=== PATIENT | female | born 1995 | race Caucasian/White ===

== ENCOUNTER 2020-10-26 17:03 | Emergency (ER) | payer BC ==
[~2020-10-26] VITALS: Ht 160 cm; Wt 84.4 kg
[2020-10-26 17:15] VITALS: BP 137/89
--- NOTE | 2020-10-26 17:15 | NUR ---
PT TAKEN TO BED 11.
[2020-10-26] MEDS ORDERED: LIDOCAINE 2% 1000 MG/50 ML VIAL INJ ONE (17:25)
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
--- NOTE | 2020-10-26 17:52 | NUR ---
TANVIR Aaron at bedside for suture procedure.
[2020-10-26 18:09] VITALS: BP 137/89
--- NOTE | 2020-10-26 18:10 | NUR ---
Patient discharged with v/s stable. Written and verbal after care instructions given and explained. Patient verbalized understanding. Ambulatory with steady gait. All questions addressed prior to discharge. Advised to follow up with PMD.
== END 2020-10-26 18:10 | disposition home or self-care (01) ==
LOC: MED 17:03
DX: S61.215A Laceration without foreign body of left ring finger without damage to nail, initial encounter (principal); Z98.82 Breast implant status; W26.0XXA Contact with knife, initial encounter; Y93.89 Activity, other specified; Y92.89 Other specified places as the place of occurrence of the external cause; Y99.8 Other external cause status
CPT/HCPCS: 12001; 99282; J2001

== ENCOUNTER 2020-11-02 17:08 | Emergency (ER) | payer BC ==
[~2020-11-02] VITALS: Ht 160 cm; Wt 82.1 kg
[2020-11-02 17:49] VITALS: BP 117/77
--- NOTE | 2020-11-02 18:06 | NUR ---
25 y/o female presents to ed for suture removal to 4th finger on the left hand. Denies pain. Skin warm, dry, intact. VSS
[2020-11-02 18:08] VITALS: BP 117/77
== END 2020-11-02 18:09 | disposition home or self-care (01) ==
LOC: MED 17:08
DX: S61.215D Laceration without foreign body of left ring finger without damage to nail, subsequent encounter (principal); X58.XXXD Exposure to other specified factors, subsequent encounter
CPT/HCPCS: 99281